=== PATIENT | male | born 1975 | race Caucasian/White ===

== ENCOUNTER → 2017-08-12 10:01 | Outpatient (CLI) | payer OTHER, SELFPAY ==
--- NOTE | 2017-08-12 10:13 | RAD_ITS ---
XR Chest 2 Views INDICATION: SOB. HX OF ASTHMA COMPARISON: None TECHNIQUE: 2 views of the chest FINDINGS: Heart size and pulmonary vascularity are within normal limits. Lungs are hyperinflated with coarsened interstitial markings. No evidence of focal airspace consolidation or pleural effusion. RAD/Chest PA and Lateral IMPRESSION: Lungs hyperinflated with coarsened interstitial markings, correlate for COPD or chronic air trapping. at 0053 Reported and signed by: Alpa Rodriguez MD Electronically Signed: Alpa Rodriguez MD at 23:52 EST Tel , Service support ,
== END ==
PROVIDERS: Family Provider Family Medicine; PCP Family Medicine; Visit Provider Family Medicine
DX: J45.909 Unspecified asthma, uncomplicated (principal); R06.02 Shortness of breath
CPT/HCPCS: 71046

== ENCOUNTER → 2019-03-07 | Outpatient (CLI) | payer OTHER, SELFPAY ==
--- NOTE | 2019-03-07 11:43 | RAD_ITS ---
HISTORY: Left sided intermittent flank pain. 2 views of the abdomen. No comparison imaging. Findings: Gentle levoscoliosis within the lumbar spine. Facet arthropathy at the L5-S1 level. This is very mild disease. Bowel gas pattern is normal. No pneumatosis is perceived. No free air is demonstrated. RAD/Abdomen Single View IMPRESSION: Mild degenerative disease within the lower lumbar spine. at 3354 Reported and signed by: Orestes Moise MD Electronically Signed: Orestes Moise MD at 23:24 EDT Tel , Service support ,
== END | disposition home or self-care (01) ==
PROVIDERS: Family Provider Family Medicine; PCP Family Medicine; Referring Provider Family Medicine; Visit Provider Family Medicine
DX: R10.9 Unspecified abdominal pain (principal)
CPT/HCPCS: 74018

== ENCOUNTER → 2019-03-21 | Outpatient (CLI) | payer OTHER, SELFPAY ==
[2019-03-21 18:07] LABS: Chlamydia Trachomatis by PCR Negative (Negative); Neisserai gonorrhoeae by PCR Negative (Negative); Probe Check PASS; Sample Adequacy Control PASS; Specimen Processing Control PASS
== END | disposition home or self-care (01) ==
LOC: BFHLAB 13:44
PROVIDERS: Family Provider Family Medicine; PCP Family Medicine; Visit Provider Family Medicine
DX: N34.2 Other urethritis (principal)
CPT/HCPCS: 87086; 87491; 87591

== ENCOUNTER → 2019-05-17 | Outpatient (CLI) | payer OTHER, SELFPAY ==
[2019-05-17 15:58] LABS: Absolute Lymphocyte Count 2.24 X10^3/uL (0.83-4.51); Absolute Neutrophil Count 4.9 X10^3/uL (2.0-7.7); Basophil# 0.06 X10^3/uL; Basophil% 0.7 % (0-1); Eosinophil# 0.26 X10^3/uL; Eosinophils% 3.2 % (0-5); Hematocrit 44.7 % (40-54); Hemoglobin 14.3 g/dL (13.0-16.5); Lymphocyte # 2.24 X10^3/ul (4.0); Mean Corpuscular Hgb 28.3 pg (27.0-32.0); Mean Corpuscular Volume 88.5 fL (80-94); Mean Platelet Vol. 11.4 fl (6.2-12.0); Monocyte# 0.56 X10^3/uL; NRBC Flagged by Analyzer 0 % (0-5); Neutrophil # 4.86 X10^3/uL (2.7-7.7); Neutrophil % 60.7 % (47-70); Platelet Count 339 K/mm3 (150-450); RBC Distribution Width CV 14.2 % (11.6-14.6); RBC Distribution Width SD 45.2 fl (35.1-43.9); Red Blood Count 5.05 M/mm3 (4.6-6.2)
[2019-05-17 16:17] LABS: Vitamin B12 642 pg/mL (211-911); Vitamin D,25 Hydroxy 18.8 ng/mL (29.95-100.01)
[2019-05-17 16:25] LABS: Thyroid Stim Hormone (TSH) 0.94 uIU/mL (0.358-3.74)
== END | disposition home or self-care (01) ==
PROVIDERS: Family Provider Family Medicine; PCP Family Medicine; Visit Provider Family Medicine
DX: R53.83 Other fatigue (principal)
CPT/HCPCS: 36415; 82306; 82607; 84443; 85025

== ENCOUNTER 2021-09-16 13:59 | Outpatient (CLI) | payer OTHER, SELFPAY ==
--- NOTE | 2021-09-16 14:03 | RAD_ITS ---
STUDY: X-RAY - CERVICAL SPINE REASON FOR EXAM: Male, 46 years old. Radiating neck pain TECHNIQUE: 6 view(s) of the cervical spine were obtained. COMPARISON: None FINDINGS: Normal anterior atlantoaxial articulation. Normal odontoid process. There is straightening of the normal cervical lordosis. Normal vertebral bodies and endplates. Normal disc space heights. Normal visualized intervertebral neuroforamina. The soft tissue structures are unremarkable. RAD/Cerv Spine 4 or 5 Views IMPRESSION: Normal x-ray examination of the visualized cervical spine. Electronically Signed: Law Handley MD at 14:59 EDT ,
== END 2021-09-16 23:59 | disposition home or self-care (01) ==
LOC: MTRAD 14:01
PROVIDERS: PCP Family Medicine; Referring Provider Family Medicine; Visit Provider Family Medicine
DX: M50.10 Cervical disc disorder with radiculopathy, unspecified cervical region (principal)
CPT/HCPCS: 72050

== ENCOUNTER → 2022-05-03 | Outpatient (CLI) | payer OTHER, SELFPAY ==
[2022-05-03 10:58] LABS: Cholesterol 208 mg/dL (200); High Density Lipoprotein 36 mg/dL; Triglycerides 202 mg/dL; Very Low Density Lipoprotein 40 mg/dL (5-40)
[2022-05-03 11:03] LABS: Hemoglobin A1c 5.9 % (3.8-5.6); Vitamin D,25 Hydroxy 27.6 ng/mL
== END | disposition home or self-care (01) ==
PROVIDERS: PCP Family Medicine; Referring Provider Family Medicine; Visit Provider Family Medicine
DX: Z00.00 Encounter for general adult medical examination without abnormal findings (principal); E55.9 Vitamin D deficiency, unspecified; R73.01 Impaired fasting glucose
CPT/HCPCS: 36415; 80061; 82306; 83036

== ENCOUNTER → 2022-08-04 | Outpatient (CLI) | payer OTHER, SELFPAY ==
[2022-08-04 17:48] LABS: Absolute Lymphocyte Count 2.31 X10^3/uL (0.83-4.51); Absolute Neutrophil Count 5.6 X10^3/uL (2.0-7.7); Basophil# 0.08 X10^3/uL; Basophil% 0.9 % (0-1); Eosinophil# 0.42 X10^3/uL; Eosinophils% 4.7 % (0-5); Hematocrit 48.1 % (40-54); Hemoglobin 15.4 g/dL (13.0-16.5); Lymphocyte # 2.31 X10^3/ul (0.83-4.51); Lymphocyte % 25.7 % (19-41); Mean Corpuscular Hgb 28.2 pg (27.0-32.0); Mean Corpuscular Volume 88.1 fL (80-94); Mean Platelet Vol. 11.1 fl (6.2-12.0); Monocyte# 0.57 X10^3/uL; Monocyte% 6.3 % (0-10); NRBC Flagged by Analyzer 0 % (0-5); Neutrophil # 5.55 X10^3/uL (2.7-7.7); Neutrophil % 61.8 % (47-70); Platelet Count 383 K/mm3 (150-450); RBC Distribution Width CV 14.3 % (11.6-14.6); RBC Distribution Width SD 45.4 fl (35.1-43.9); Red Blood Count 5.46 M/mm3 (4.6-6.2)
[2022-08-04 18:12] LABS: Vitamin D,25 Hydroxy 36.5 ng/mL
[2022-08-04 18:28] LABS: ALB/GLOB Ratio 1.1 RATIO (0.9-2.4); AST(SGOT) 23 U/L (15-37); Alanine Aminotransfer ALT/SGPT 55 U/L (16-61); Alkaline Phosphatase 67 U/L (45-117); Anion Gap 8 (5-15); BUN 16 mg/dL (7-18); BUN/Creat Ratio 16.9 RATIO (10-20); Calcium,Total 9.4 mg/dL (8.5-10.1); Chloride 106 mmol/L (98-107); Creatinine, Serum 0.95 mg/dL (0.70-1.30); EST Glomerular Filtration Rate 90 mL/min (>60); Est Glom Filt Rate - Afr Amer 109 mL/min (>60); Globulin 3.6 g/dL (2.2-4.2); Glucose 113 mg/dL (74-106); Potassium 3.9 mmol/L (3.5-5.1); Protein, Total 7.6 g/dL (6.4-8.2); Sodium Level 141 mmol/L (136-145)
== END | disposition home or self-care (01) ==
LOC: BFHLAB 15:23
PROVIDERS: PCP Family Medicine; Visit Provider Family Medicine
DX: K62.5 Hemorrhage of anus and rectum (principal); K76.0 Fatty (change of) liver, not elsewhere classified; E54 Ascorbic acid deficiency; E55.9 Vitamin D deficiency, unspecified
CPT/HCPCS: 36415; 80053; 82306; 85025

== ENCOUNTER 2022-10-29 15:25 | Emergency (ER) | payer OTHER, SELFPAY ==
[2022-10-29 15:26] VITALS: BP 146/97; PULSE 120; RESP 16; TEMP 36.4; O2SAT 98; BMI 29.1
--- NOTE | 2022-10-29 15:45 | EX.ED.VIS.EY ---
HPI History of Present Illness Chief Complaint: Eye Problem Informant: patient and spouse/S.O. Onset/Context/Timing Location: Left Eye Onset: Hours (2) Context: Sudden Onset Timing: Intermittent (once) and Lasts (one minute) Current Severity: Gone Maximum Severity: Moderate Worsened by: nothing Relieved by: nothing in particular Narrative Narrative: 47-year-old male self the clear history of panic and anxiety over medical issues presenting 2 hours after he had a 1 minute episode of visual disturbance in his left eye upper visual field. He states it looked like a shadow. He cannot tell me if it was a disturbance or visual field loss but he thinks it was more like a disturbance; he describes it like when you stand up really fast and you are near syncopal and you see spots in your eye, but it was just in his upper visual field of his left eye only. He had no other associated symptoms. His states that I felt him when it happened and he was sweaty. He denies any associated neurologic symptoms, pain in the eye, pain in the face, headache, ear symptoms or disequilibrium/vertigo although he has a history of tinnitus off and on chronically, palpitations, lightheadedness or near syncope, or any other systemic symptoms on ROS. He does not use any form of vision correction but states he chronically has trouble seeing things that are very close up. He states at the time this occurred, he was about to get into his car after talking with a family member. [facility] Medical History (Updated 10/29/22 @ 17:[address] Arturo Perkins MD) Asthma Chronic anxiety GERD (gastroesophageal reflux disease) Hx of fracture of tibia OCD (obsessive compulsive disorder) Home Medications albuterol sulfate 90 mcg/actuation breath activated powder inhaler (ProAir RespiClick) 2 inh inhalation Q4H PRN asthma 08/10/22 [History Last Taken Unknown] cholecalciferol (vitamin D3) 1,250 mcg (50,000 unit) capsule 1,250 mcg PO QWEEK 08/10/22 [History Last Taken Unknown] escitalopram oxalate 20 mg tablet 20 mg PO DAILY 08/10/22 [History Last Taken Unknown] multivitamin 1 tab PO DAILY 08/10/22 [History Last Taken Unknown] omeprazole 20 mg tablet,delayed release 20 mg PO BID 08/10/22 [History Last Taken Unknown] fluticasone furoate 100 mcg/actuation blister powder for inhalation (Arnuity Ellipta) 100 mcg inhalation DAILY 10/29/22 [History Last Taken Unknown] Allergy/AdvReac Type Severity Reaction Status Date / Time Sulfa (Sulfonamide Allergy Rash Verified 10/29/22 15:37 Antibiotics) Family History (Updated 08/10/22 @ 08:50 by Sheyla Chavira) Mother Epilepsy Father Colon polyps Social History (Updated 08/10/22 @ 08:53 by Sheyla Chavira) household members: spouse current occupational status: employed Smoking Status: Never smoker Smokeless tobacco user: chewing tobacco alcohol intake: never caffeine: Yes ROS ROS ED Constitutional Constitutional ED: Denies chills or fever(s) Eyes Eyes: Reports as per HPI and change in vision left; Denies diplopia, discharge from eye(s) or eye pain ENT ENT ED: Denies discharge from eye(s), disequillibrium, dizziness, ear discharge, ear pain, epistaxis, hearing loss, loss taste/smell, rhinorrhea, sinus pressure, sore throat or vertigo Cardiovascular Cardiovascular: Denies chest pain or palpitations Neurologic Neurologic: Denies headache(s), memory loss, paresthesias, seizures, syncope, vertigo or weakness Psychiatric Psychiatric: Reports anxiety; Denies suicidal ideation EXAM Physical Exam Const Vital Signs: 10/29/22 15:26 Temperature 97.6 F L Temperature Source Temporal Pulse Rate 120 H Respiratory Rate 16 Blood Pressure 146/97 H Blood Pressure Mean 113 Pulse Ox 98 Oxygen Delivery Method Room Air Positive well nourished and well developed General Appearance ED: well developed and NAD HEENT atraumatic; Negative for tenderness Mouth ED: Yes oral and palatal mucosa normal and Yes lips normal Mouth: oral and palatal mucosa normal and lips normal Eyes PERRL and EOMs intact bilaterally Eyes Narrative: Normal visual inspection. Normal eyelids no ptosis. No visual field cut/deficit. Neck no lymphadenopathy and supple Neuro oriented x3, CN's II-XII intact bilaterally and gait normal Neuro Narrative: NIHSS 0 Sensorium / Orientation: alert Psych Mood & Affect: anxious Skin Lesions: no lesions Rashes: no rashes MDM MDM MDM Narrative Medical decision making narrative: I had nursing check his visual acuity, OD 20/50, OS 20/70, OU 20/40. I dilated the patient's left eye with 2 drops of Cyclogyl. An hour later I used the panoptic ophthalmoscope to visualize posterior fossa. I am able to discern that he does not have papilledema and that he does not appear to have any signs of acute retinal detachment, with blood vessels visible in all 4 quadrants and no other obvious pathology such as AV nicking. During his observation here in the emergency department he had no recurrent issues or visual field cuts. I do not think that this is any acute neurologic event given how focal his symptoms were and the fact that his blood pressures in the 140s. I discussed this with Dr. Jay with ophthalmology, he agrees that the patient is stable to be discharged and follow-up after the weekend, he will see him on Monday. Discharge Plan Triage Chief Complaint: Eye Problem ED Provider: Arturo Perkins Dx/Rx/DC Orders Clinical Impression: Subjective visual disturbance, left eye Prescriptions: No Action escitalopram oxalate 20 mg tablet 20 mg PO DAILY omeprazole 20 mg tablet,delayed release (DR/EC) 20 mg PO BID ProAir RespiClick 90 mcg/actuation aerosol powdr breath activated 2 inh inhalation Q4H PRN (Reason: asthma) multivitamin Tablet 1 tab PO DAILY cholecalciferol (vitamin D3) 1,250 mcg (50,000 unit) capsule 1,250 mcg PO QWEEK Arnuity Ellipta 100 mcg/actuation blister with device 100 mcg INHALATION DAILY Primary Care Provider: Kevin Soriano Referrals: Jim Jay MD [Med Staff - Active Staff] - 2 Days (call at 8am for appt time to be seen that day, Monday) Kevin Soriano, [Primary Care Provider] - Disposition Disposition: Home, Self Care
[2022-10-29] MEDS: Cyclopentolate 1% 2 ML Bottle 2 DRP LEFT EYE (16:17)
== END 2022-10-29 18:00 | disposition home or self-care (01) ==
PROVIDERS: Emergency Provider Emergency Medicine; PCP Family Medicine; Visit Provider Emergency Medicine
DX: H53.9 Unspecified visual disturbance (principal); J45.909 Unspecified asthma, uncomplicated
CPT/HCPCS: 99283

== ENCOUNTER → 2023-05-16 | Outpatient (CLI) | payer OTHER, SELFPAY | END | disposition home or self-care (01) | PROVIDERS: PCP Family Medicine; Referring Provider Family Medicine; Visit Provider Family Medicine | DX: G47.10 Hypersomnia, unspecified (principal); R06.83 Snoring | CPT/HCPCS: 95806 ==

== ENCOUNTER → 2023-08-17 | Outpatient (CLI) | payer OTHER, SELFPAY ==
[2023-08-17 12:05] LABS: Absolute Neutrophil Count 5.2 X10^3/uL (2.0-7.7); Basophil# 0.07 X10^3/uL; Basophil% 0.9 % (0-1); Eosinophil# 0.23 X10^3/uL; Eosinophils% 2.8 % (0-5); Hematocrit 51.2 % (40-54); Hemoglobin 16.5 g/dL (13.0-16.5); Lymphocyte % 25.6 % (19-41); Mean Corp Hgb Conc 32.2 g/dL (32-36); Mean Corpuscular Hgb 28.5 pg (27.0-32.0); Mean Corpuscular Volume 88.4 fL (80-94); Mean Platelet Vol. 12.1 fl (6.2-12.0); Monocyte# 0.55 X10^3/uL; Monocyte% 6.7 % (0-10); NRBC Flagged by Analyzer 0 % (0-5); Neutrophil % 63.5 % (47-70); Platelet Count 279 K/mm3 (150-450); RBC Distribution Width CV 14.2 % (11.6-14.6); Red Blood Count 5.79 M/mm3 (4.6-6.2); White Blood Count 8.2 K/mm3 (4.4-11.0)
[2023-08-17 12:58] LABS: ALB/GLOB Ratio 1.1 RATIO (0.9-2.4); AST(SGOT) 25 U/L (15-37); Alanine Aminotransfer ALT/SGPT 68 U/L (16-61); Albumin, Serum 4.1 g/dL (3.2-5.0); Alkaline Phosphatase 67 U/L (45-117); Anion Gap 5 (5-15); BUN 17 mg/dL (7-18); BUN/Creat Ratio 15.5 RATIO (10-20); Calcium,Total 9.8 mg/dL (8.5-10.1); Chloride 108 mmol/L (98-107); Cholesterol 196 mg/dL (200); EST Glomerular Filtration Rate 76 mL/min (>60); Est Glom Filt Rate - Afr Amer 91 mL/min (>60); Globulin 3.7 g/dL (2.2-4.2); Glucose 115 mg/dL (74-106); High Density Lipoprotein 36 mg/dL; Potassium 4.4 mmol/L (3.5-5.1); Protein, Total 7.8 g/dL (6.4-8.2); Sodium Level 141 mmol/L (136-145); Triglycerides 124 mg/dL; Very Low Density Lipoprotein 25 mg/dL (5-40)
[2023-08-17 14:14] LABS: Hemoglobin A1c 5.8 % (3.8-5.6)
[2023-08-18 13:07] LABS: PSA,Total - Annual Screen 2.08 ng/mL (0.00-4.00)
== END | disposition home or self-care (01) ==
PROVIDERS: PCP Family Medicine; Referring Provider Family Medicine; Visit Provider Family Medicine
DX: Z00.00 Encounter for general adult medical examination without abnormal findings (principal); Z12.5 Encounter for screening for malignant neoplasm of prostate
CPT/HCPCS: 36415; 80053; 80061; 83036; 84153; 85025; G0103

== ENCOUNTER → 2024-04-16 | Outpatient (CLI) | payer OTHER, SELFPAY ==
[2024-04-16 18:10] LABS: AST(SGOT) 24 U/L (15-37); Alanine Aminotransfer ALT/SGPT 57 U/L (16-61); Albumin, Serum 3.9 g/dL (3.2-5.0); Alkaline Phosphatase 68 U/L (45-117); Bilirubin, Direct 0.18 mg/dL (0.00-0.30); Cholesterol 189 mg/dL (200); Globulin 3.6 g/dL (2.2-4.2); High Density Lipoprotein 36 mg/dL; Protein, Total 7.5 g/dL (6.4-8.2); Triglycerides 186 mg/dL; Very Low Density Lipoprotein 37 mg/dL (5-40)
[2024-04-16 18:11] LABS: Hemoglobin A1c 5.6 % (3.8-5.6)
== END | disposition home or self-care (01) ==
LOC: BFHLAB 14:30
PROVIDERS: PCP Family Medicine; Referring Provider Family Medicine; Visit Provider Family Medicine
DX: E78.5 Hyperlipidemia, unspecified (principal); R73.01 Impaired fasting glucose; R74.01 Elevation of levels of liver transaminase levels
CPT/HCPCS: 36415; 80061; 80076; 83036

== ENCOUNTER → 2024-12-05 | Outpatient (CLI) | payer OTHER, SELFPAY ==
[2024-12-05 18:12] LABS: Hemoglobin A1c 5.9 % (<=5.6)
[2024-12-05 18:16] LABS: Absolute Lymphocyte Count 2.61 X10^3/uL (0.83-4.51); Basophil# 0.09 X10^3/uL; Eosinophil# 0.56 X10^3/uL; Eosinophils% 6.3 % (0-5); Hematocrit 46.7 % (40-54); Hemoglobin 15.1 g/dL (13.0-16.5); Lymphocyte # 2.61 X10^3/ul (0.83-4.51); Lymphocyte % 29.4 % (19-41); Mean Corp Hgb Conc 32.3 g/dL (32-36); Mean Corpuscular Hgb 28.2 pg (27.0-32.0); Mean Corpuscular Volume 87.1 fL (80-94); Monocyte# 0.59 X10^3/uL; Monocyte% 6.7 % (0-10); NRBC Flagged by Analyzer 0 % (0-5); Neutrophil # 4.99 X10^3/uL (2.7-7.7); Neutrophil % 56.3 % (47-70); Platelet Count 332 K/mm3 (150-450); RBC Distribution Width CV 14.4 % (11.6-14.6); RBC Distribution Width SD 45.9 fl (35.1-43.9); Red Blood Count 5.36 M/mm3 (4.6-6.2); White Blood Count 8.9 K/mm3 (4.4-11.0)
[2024-12-05 18:20] LABS: ALB/GLOB Ratio 1.4 RATIO (0.9-2.4); AST(SGOT) 27 U/L (<=37); Alanine Aminotransfer ALT/SGPT 55 U/L (<=46); Albumin, Serum 4.4 g/dL (3.5-5.0); Alkaline Phosphatase 67 U/L (40-129); Anion Gap 13 (5-15); BUN 13 mg/dL (4-19); BUN/Creat Ratio 13.8 RATIO (10-20); Calcium,Total 9.7 mg/dL (7.6-11.0); Carbon Dioxide 25.5 mmol/L (21.0-32.0); Chloride 100 mmol/L (98-108); Cholesterol 184 mg/dL (<=200); Creatinine, Serum 0.91 mg/dL (0.70-1.20); EST Glomerular Filtration Rate 103 (>60); Glucose 83 mg/dL (70-99); High Density Lipoprotein 34 mg/dL; Low Density Lipoprotein Calc. 123 mg/dL; PSA,Total - Annual Screen 1.21 ng/mL (0.02-4.00); Potassium 3.9 mmol/L (3.3-5.1); Protein, Total 7.4 g/dL (5.9-8.4); Sodium Level 138 mmol/L (133-145); Total Bilirubin 0.61 mg/dL (0.00-1.30); Triglycerides 132 mg/dL; Very Low Density Lipoprotein 26 mg/dL (5-40); cholesterol:hdl ratio screen 5.35
== END | disposition home or self-care (01) ==
LOC: MTLAB 14:24
PROVIDERS: PCP Family Medicine; Referring Provider Family Medicine; Visit Provider Family Medicine
DX: Z00.00 Encounter for general adult medical examination without abnormal findings (principal); R73.01 Impaired fasting glucose; Z12.5 Encounter for screening for malignant neoplasm of prostate
CPT/HCPCS: 36415; 80053; 80061; 83036; 84153; 85025; G0103